=== PATIENT | female | born 1995 | race Caucasian/White ===

== ENCOUNTER 2018-03-13 07:59 | Day surgery (SDC) | payer OTHER ==
[2018-03-13] MEDS ORDERED: DEXAMETHASONE 4 MG/ML VIAL ONE (08:12)
[2018-03-13] MEDS ORDERED: LIDOCAINE HCL 160 MG/4 ML LTA KIT TP ONE (08:12)
[2018-03-13] MEDS ORDERED: ROCURONIUM 50 MG/5 ML VIAL ONE (08:12)
[2018-03-13] MEDS ORDERED: MIDAZOLAM 2 MG/2 ML VIAL ONE (08:12)
[2018-03-13] MEDS ORDERED: SUGAMMADEX SODIUM 200 MG/2 ML VIAL IVP ONE (08:12)
[2018-03-13] MEDS ORDERED: KETOROLAC 30 MG/1 ML SDV ONE (08:12)
[2018-03-13] MEDS ORDERED: LIDOCAINE 2% 100 MG/5 ML SYR ONE (08:12)
[2018-03-13] MEDS ORDERED: ONDANSETRON 4 MG/2 ML VIAL ONE (08:12)
[2018-03-13] MEDS ORDERED: fentaNYL 250 MCG/5 ML INJ ONE (08:13)
[2018-03-13] MEDS ORDERED: PROPOFOL 200 MG/20 ML VIAL ONE (08:13)
--- NOTE | 2018-03-13 08:29 | PDGENHP ---
History and Physical History and Physical: Assessment and Plan: 1. Endometriosis of pelvic peritoneum Zacarias has laparoscopic proven endometriosis. Her symptoms and signs are consistent with recurrent disease especially in the posterior cul-de-sac. We reviewed all conservative and surgical options. At the end of our discussion she is interested in scheduling surgical removal. 2. Dysmenorrhea Subjective: Patient ID: Zacarias Morrison is a 22 y.o. female who presents to [facility] for endometriosis consult. HPI Zacarias is a 22 year old para 0 who is here due to ongoing pelvic pain and symptoms of endometriosis. She was initially diagnosed in 2017 with a laparoscopy by her OBGYN, Dr. Barth at [facility]. During that time , she was also sent to GI and her PCP who were concerned about her GI symptoms. She had a colonoscopy and was diagnosed with IBS. She then went back to her obgyn who performed the lap and found endometriosis in the pelvic cavity including the uterus and cul-de-sac. Zacarias had symptom relief for about six months, but since then her pain has returned, and even worsened. Zacarias has irregular periods due to PCOS, but has been on control since age 14. Her periods are more regular with the control, but since her surgery, she has required nexplanon as well as OCP for cessation of menses and pain control. She does feel better without menses. She has recently started physical therapy at [address], which has improved some of her symptoms, but her pain remains. Zacarias's pain is daily, often requiring her to miss work 5 days per month. She feels worsened pain when she suspects she should be ovulating, but it is better since starting the oral pills. She describes sharp, stabbing and spasm pain. This pain is greater on her right side. It radiates mostly to her hips and epigastric area, and to the legs and back when it's really bad. PT has improved some of this pain. She also notes dyspareunia that is deep, and occasionally will have pain lasting hours and causing vomiting. She also had dyschezia that is cramping before and soreness after BM. The PT has helped a little with this. She takes flexaril, tylenol and ibuprofen for the pain. She also has urinary frequency and urgency, often she will urinate 15 times per day. Her bladder feels painful when full and after urinating, and has a feeling of incomplete emptying. This has also been improved with PT. Zacarias lives in [place] and works at a [employer] center. PastMedicalHistory Past Medical History: Diagnosis Date Depression Anxiety Endometriosis Gastrointestinal disorder celiac PCOS (polycystic ovarian syndrome) Pulmonary disease asthma STD (sexually transmitted disease) HPV Trauma Urinary tract infection PastSurgicalHistory Past Surgical History: Procedure Laterality Date CHOLECYSTECTOMY COLPOSCOPY ovarian dermoid cyst removal 2013 PELVIC LAPAROSCOPY CURRENT MEDICATIONS: Current Outpatient Prescriptions Medication Sig acetaminophen (TYLENOL PO) cyclobenzaprine (FLEXERIL) 10 mg tablet TK 1 T PO Q 8 H PRF MUSCLE SPASM ESTARYLLA 0.25-35 mg-mcg per tablet TK 1 T PO QD etonogestrel (NEXPLANON) 68 mg Impl subdermal implant 68 mg by Subdermal route continuous device. IBUPROFEN PO Magnesium Oxide 500 mg Tab With 5 mg Vitamin b-6 ondansetron (ZOFRAN) 4 mg tablet Take 4 mg by mouth 2 times daily as needed for Nausea. promethazine (PHENERGAN) 12.5 mg tablet TK 1 T PO Q 8 H PRF NAUSEA UNABLE TO FIND Med Name: "Happy Hormones" No current facility-administered medications for this visit. ALLERGIES: Patient has no known allergies. I have reviewed, verified and agree with the past medical, surgical, , family, social and ROS history as documented by the RN today. Objective: Vital Signs: Visit Vitals BP 122/72 Pulse 94 Temp 37.3 C (99.1 F) (Temporal Artery) Resp 14 Ht 1.575 m (5' 2") Wt 90.7 kg (200 lb) SpO2 93% BMI 36.58 kg/m Physical Exam Gen: This is an alert, well developed woman in no distress. Neuro: She moves all extremities. Psych: She is appropriate, oriented, with normal affect. Neck: No thyroid enlargement, adenopathy, or tenderness. Lungs: Clear to ascultation, no wheezes or rales. Heart: Regular rate and rhythm without obvious murmurs. Abdomen: Soft, non-tender, without guarding, rebound, or masses. Extremities: No edema or cyanosis. Pelvic: Normal external genitalia. Non-gaping introitus, vagina without discharge, adequately estrogenized, no significant prolapse. Cervix without lesions or discharge. Uterus normal sized, mobile, non-tender. Adnexa non- tender without enlargement. She is quite tender surrounding the cervix and exquisitely tender in the posterior cul-de-sac and both uterosacral ligaments. DATA: I have reviewed the pertinent medical records. TIME/COMMUNICATION: I personally spent a total of 50 minutes. Of that 40 minutes was counseling/ coordination of patient's care. See my note above for details. Luis Smith MD Board Certified Female Pelvic Medicine and Reconstructive Surgery Director of Minimally Invasive Gynecologic Surgery, [facility] Surgeon in Minimally Invasive Gynecologic Surgery [facility] Surgeon in Robotic Surgery
--- NOTE | 2018-03-13 08:29 | PDHPUP ---
History & Physical Update H&P update statement: This history and physical update is based on an assessment of the patient which was completed after admission or registration (within 24 hours), but prior to the surgery/procedure. H&P update: H&P reviewed & patient examined, no change in patient's condition since H&P completed
[2018-03-13] MEDS ORDERED: ceFAZolin 2 GM/DEXTROSE 100 ML IV ONE (08:45)
[2018-03-13] MEDS ORDERED: PHENAZOPYRIDINE HCL 200 MG TAB PO ONE (08:45)
[2018-03-13] MEDS ORDERED: GABAPENTIN 300 MG CAP PO ONE (08:45)
[2018-03-13] MEDS ORDERED: ACETAMINOPHEN 500 MG TAB PO ONE (08:45)
[2018-03-13] MEDS ORDERED: LR 1,000 ML IV ONE (08:46)
[2018-03-13] MEDS ORDERED: LIDOCAINE 1% 2 ML INJ ID PRN (08:46)
[2018-03-13] MEDS ORDERED: SCOPOLAMINE HYDROBROMIDE 1 MG/3 DAYS PATCH TD ONE (08:54)
[2018-03-13] MEDS ORDERED: BUPIVACAINE/EPI 0.5% 30 ML SDV ONE (08:55)
--- NOTE | 2018-03-13 08:56 | PDANEPAE ---
ANE History of Present Illness endometriosis, here for resection with robotic assist ANE Past Medical History - Cardiovascular History Hx Hypertension: No Hx Arrhythmias: No Hx Chest Pain: No Hx Coronary Artery / Peripheral Vascular Disease: No Hx CHF / Valvular Disease: No Hx Palpitations: No - Pulmonary History Hx COPD: No Hx Asthma/Reactive Airway Disease: No Hx Recent Upper Respiratory Infection: No Hx Oxygen in Use at Home: No Hx Sleep Apnea: No Sleep Apnea Screening Result - Last Documented: Negative Pulmonary History Comment: HX SEASONAL INHALER - Neurologic History Hx Cerebrovascular Accident: No Hx Seizures: No Hx Dementia: No Neurologic History Comment: CHILDHOOD SEIZURES - NONE SINCE AGE 2 - Endocrine History Hx Diabetes: No - Renal History Hx Renal Disorders: No - Liver History Hx Hepatic Disorders: No Hepatic History Comment: RADHA - Neurological & Psychiatric Hx Hx Neurological and Psychiatric Disorders: Yes Neurological / Psychiatric History Comment: ANXIETY/ DEPRESSION - NO MEDS - Cancer History Hx Cancer: No - Congenital Disorder History Hx Congenital Disorders: No - GI History Hx Gastrointestinal Disorders: Yes Gastrointestinal History Comment: NAUSEA. CELIAC. IBS - Other Health History Other Health History: HIDRADENITIS SUPPURATIVA - CYSTS THIGHS AND TRUNK - Chronic Pain History Chronic Pain: Yes (PELVIC, BACK, ABDOMINAL W/ENDOMETRIOSIS) - Surgical History Prior Surgeries: CHOLECYSTECTOMY & OVARIAN CYST. ENDOMETRIOSIS EXC ANE Review of Systems Review of Systems: - Exercise capacity METS (RN): 5 METS ANE Patient History - Allergies Allergies/Adverse Reactions: No Known Allergies Allergy (Unverified 02/20/18 12:51) - Home Medications Home Medications: Albuterol Hfa Anes Only 02/20/18 [Last Taken Unknown] Estarylla 0.25-0.035 mg Tablet 02/20/18 [Last Taken Unknown] Flexeril 10 MG (*) 02/20/18 [Last Taken Unknown] Ibuprofen 02/20/18 [Last Taken Unknown] Nexplanon 02/20/18 [Last Taken Unknown] Promethazine HCl 02/20/18 [Last Taken Unknown] Tylenol 02/20/18 [Last Taken Unknown] Zofran 02/20/18 [Last Taken Unknown] - Smoking Hx Smoking Status: Heavy smoker - Family Anes Hx Family Hx Anesthesia Complications: NEG ANE Labs/Vital Signs - Vital Signs Height: 157.48 cm Weight: 90.718 kg ANE Physical Exam - Airway Neck exam: FROM Mallampati Score: Class 1 Mouth exam: normal dental/mouth exam - Pulmonary Pulmonary: no respiratory distress - Cardiovascular Cardiovascular: regular rate and rhythym - ASA Status ASA Status: III ANE Anesthesia Plan Anesthesia Plan: general endotracheal anesthesia
--- NOTE | 2018-03-13 08:56 | PDANEPAE ---
ANE History of Present Illness Endometriosis, here for excision with robotic assist ANE Past Medical History - Cardiovascular History Hx Hypertension: No Hx Arrhythmias: No Hx Chest Pain: No Hx Coronary Artery / Peripheral Vascular Disease: No Hx CHF / Valvular Disease: No Hx Palpitations: No - Pulmonary History Hx COPD: No Hx Asthma/Reactive Airway Disease: No Hx Recent Upper Respiratory Infection: No Hx Oxygen in Use at Home: No Hx Sleep Apnea: No Sleep Apnea Screening Result - Last Documented: Negative Pulmonary History Comment: HX SEASONAL INHALER - Neurologic History Hx Cerebrovascular Accident: No Hx Seizures: No Hx Dementia: No Neurologic History Comment: CHILDHOOD SEIZURES - NONE SINCE AGE 2 - Endocrine History Hx Diabetes: No - Renal History Hx Renal Disorders: No - Liver History Hx Hepatic Disorders: No Hepatic History Comment: RADHA - Neurological & Psychiatric Hx Hx Neurological and Psychiatric Disorders: Yes Neurological / Psychiatric History Comment: ANXIETY/ DEPRESSION - NO MEDS - Cancer History Hx Cancer: No - Congenital Disorder History Hx Congenital Disorders: No - GI History Hx Gastrointestinal Disorders: Yes Gastrointestinal History Comment: NAUSEA. CELIAC. IBS - Other Health History Other Health History: HIDRADENITIS SUPPURATIVA - CYSTS THIGHS AND TRUNK - Chronic Pain History Chronic Pain: Yes (PELVIC, BACK, ABDOMINAL W/ENDOMETRIOSIS) - Surgical History Prior Surgeries: CHOLECYSTECTOMY & OVARIAN CYST. ENDOMETRIOSIS EXC ANE Review of Systems Review of Systems: - Exercise capacity METS (RN): 5 METS ANE Patient History - Allergies Allergies/Adverse Reactions: No Known Allergies Allergy (Verified 03/13/18 09:11) - Home Medications Home Medications: Albuterol Hfa Anes Only 02/20/18 [Last Taken Unknown] Estarylla 0.25-0.035 mg Tablet 02/20/18 [Last Taken 03/12/18 21:00] Flexeril 10 MG (*) 02/20/18 [Last Taken 03/12/18 10:00] Ibuprofen 02/20/18 [Last Taken 03/05/18] Nexplanon 02/20/18 [Last Taken Unknown] Promethazine HCl 02/20/18 [Last Taken 03/12/18 21:00] Tylenol 02/20/18 [Last Taken 03/12/18] Zofran 02/20/18 [Last Taken 02/28/18] - Smoking Hx Smoking Status: Heavy smoker - Family Anes Hx Family Hx Anesthesia Complications: NEG ANE Labs/Vital Signs - Vital Signs Height: 157.48 cm Weight: 90.718 kg ANE Physical Exam - Airway Neck exam: FROM Mallampati Score: Class 2 Mouth exam: normal dental/mouth exam - Pulmonary Pulmonary: no respiratory distress - Cardiovascular Cardiovascular: regular rate and rhythym - ASA Status ASA Status: II ANE Anesthesia Plan Anesthesia Plan: general endotracheal anesthesia
[2018-03-13] MEDS ORDERED: SCOPOLAMINE HYDROBROMIDE 1 MG/3 DAYS PATCH TD SCH (09:00)
[2018-03-13] MEDS ORDERED: NALOXONE HCL 0.4 MG/ML INJ IVP PRN (10:06)
[2018-03-13] MEDS ORDERED: oxyCODONE IR 5 MG TAB PO PRN (10:06)
[2018-03-13] MEDS ORDERED: ALBUTEROL 3 ML DEYVIAL IH PRN (10:06)
[2018-03-13] MEDS ORDERED: DIAZEPAM 5 MG/ML 1 ML SYR IVP PRN (10:06)
[2018-03-13] MEDS ORDERED: LR 500 ML IV PRN (10:06)
[2018-03-13] MEDS ORDERED: fentaNYL 100 MCG/2 ML INJ IVP PRN (10:06)
[2018-03-13] MEDS ORDERED: PROMETHAZINE HCL 25 MG/ML INJ IVP PRN (10:06)
[2018-03-13] MEDS ORDERED: MEPERIDINE 25 MG/0.5 ML AMP IVP PRN (10:06)
[2018-03-13] MEDS ORDERED: HYDROmorphONE/DILAUDID 2 MG/ML INJ IVP PRN (10:06)
[2018-03-13] MEDS ORDERED: ACETAMINOPHEN 500 MG TAB PO PRN (10:06)
[2018-03-13] MEDS ORDERED: HYDROmorphONE/DILAUDID 2 MG/ML INJ ONE (10:20)
[2018-03-13] MEDS ORDERED: GLYCOPYRROLATE 0.2 MG/1 ML VIAL ONE (10:30)
[2018-03-13] MEDS ORDERED: fentaNYL 100 MCG/2 ML INJ ONE ×2 (10:42→10:51)
--- NOTE | 2018-03-13 10:52 | POSTOPPROG ---
Post Op Note Date of Operation: 03/13/18 Surgeon: Luis Smith Floral Designer Salesperson: Moraima Carr Anesthesia: GET(General Endotracheal) Pre-op Diagnosis: Endometriosis Post-op Diagnosis: Same Procedure: Robotic excision of endo, bialt ureterolysis and ovarian pexy Findings: Endo Inf/Abcess present in the surg proc area at time of surgery?: No EBL: Minimal Complications: None
[2018-03-13] MEDS ORDERED: PROMETHAZINE HCL 25 MG/ML INJ ONE ×2 (10:53→12:02)
[2018-03-13] MEDS ORDERED: oxyCODONE IR 5 MG TAB ONE (11:26)
[2018-03-13 12:23] VITALS: BP 118/74
--- NOTE | 2018-03-14 09:31 | GOP ---
DATE OF OPERATION: 03/13/2018 SURGEON: Luis Smith MD SELF PAY COLLECTOR: Moraima Carr CFA ANESTHESIA: General. PREOPERATIVE DIAGNOSIS: 1. Endometriosis. 2. Cyclic pelvic pain. 3. Dysmenorrhea. POSTOPERATIVE DIAGNOSIS: 1. Endometriosis. 2. Cyclic pelvic pain. 3. Dysmenorrhea. PROCEDURE PERFORMED: 1. Robotic excision of endometriosis in posterior cul-de-sac and bilateral ovarian fossae. 2. Bilateral ureterolysis. 3. Bilateral ovariopexy. FINDINGS: SPECIMENS: Pelvic peritoneum with endometriosis. ESTIMATED BLOOD LOSS: Scant. DESCRIPTION OF PROCEDURE: The patient was taken to the operating room where she was identified. Gen eral anesthesia was administered and found to be adequate. She was placed in the lithotomy position and prepared and draped in normal sterile fashion. A Hulka tenaculum was placed in the uterus for ma nipulation. A Carey catheter was then placed. A 1 cm infraumbilical incision was made with a scalpel. The Veress needle with the CO2 gas flowing w as advanced into the peritoneal cavity. The abdomen was then insufflated with carbon dioxide gas. T he 12 mm trocar, followed by the laparoscope were then inserted. The upper abdomen was unremarkable. There was no evidence of endometriosis on either diaphragm, liver, or stomach. She had a prior cho lecystectomy. Within the pelvis, there was scarring and endometriosis in the posterior cul-de-sac an d along both uterosacral ligaments and the ovarian fossae. The anterior cul-de-sac was relatively fr ee. There was 1 very small lesion on each ovary. A bilateral ovariopexy was performed by attaching each ovary to the ipsilateral round ligaments near the internal inguinal ring. The entire posterior cul-de-sac peritoneum from the distal rectum up to the cervix and laterally to the uterosacral ligaments was then excised. She required a bilateral ure terolysis to safely remove the endometriosis overlying both ureters. The peritoneum at the pelvic br ims was incised. The ureters were gently dissected free and lateralized off the overlying peritoneum and endometriosis from the pelvic brim all the way down to the uterine arteries. Once was accomplis hed, the entire ovarian fossa peritoneum was then excised. The pelvis was irrigated with sterile ascencion ine, and hemostasis was present. The robot was then undocked. The fascia was closed with 0 Vicryl, skin with 4-0 Monocryl. Anesthesia was reversed and patient taken to PACU awake, in stable condition . COMPLICATIONS: None. DISPOSITION: Patient stable to PACU. /[id number]/MODL
--- NOTE | 2018-03-14 16:55 | POSTANESTH ---
Post Anesthetic Evaluation Cardiovascular Status: Normal, Stable Respiratory Status: Normal, Stable Level of Consciousness/Mental Status: Can Participate in Eval Pain Control: Adequate, Prn Tx Ordered Nausea/Vomiting Control: Adequate, Prn Tx Ordered Complications Possibly Related to Anesthesia: None Noted (Doing well post-op and without questions or concerns)
== END 2018-03-13 12:29 | disposition home or self-care (01) ==
LOC: FSGY 07:59 → EDSEX 07:59 → FSGY 12:29
PROVIDERS: ATTEND Obstetrics & Gynecology
PROC: 0UB24ZZ Excision of Bilateral Ovaries, Percutaneous Endoscopic Approach (ICD-10-PCS; principal; 2018-03-13 09:15)
PROC: 0UBF4ZZ Excision of Cul-de-sac, Percutaneous Endoscopic Approach (ICD-10-PCS; principal; 2018-03-13 09:15)
PROC: 0TN64ZZ Release Right Ureter, Percutaneous Endoscopic Approach (ICD-10-PCS; principal; 2018-03-13 09:15)
PROC: 0US24ZZ Reposition Bilateral Ovaries, Percutaneous Endoscopic Approach (ICD-10-PCS; principal; 2018-03-13 09:15)
PROC: 0TN74ZZ Release Left Ureter, Percutaneous Endoscopic Approach (ICD-10-PCS; principal; 2018-03-13 09:15)
DX: N80.3 Endometriosis of pelvic peritoneum (principal); E28.2 Polycystic ovarian syndrome; K90.0 Celiac disease; J45.909 Unspecified asthma, uncomplicated; F41.9 Anxiety disorder, unspecified; N94.6 Dysmenorrhea, unspecified
CPT/HCPCS: J0690; J1100; J1170; J1885; J2001; J2250; J2405; J2550; J2704; J3010